=== PATIENT | male | born 1940 | race Caucasian/White ===

== ENCOUNTER 2024-10-28 07:45 | Outpatient (CLI) | payer MEDICARE, SELFPAY ==
--- NOTE | ~2024-10-28 | PE_ITS ---
EXAMINATION: PET_PETPSMAST_PT DATE: 10/28/2024 10:14 INDICATION: Prostate cancer TECHNIQUE: 4.283 mCi of Illucix Ga-[id number]) was administered i.v. Low dose computed jayda graphy (CT) images were acquired from the base of the brain to the base of the brain to the proximal thighs for attenuation correction and anatomic localization. Positron emission tomography (PET) image s were acquired in the same distribution beginning 95 minutes after injection. Images including fused PET/CT images were reconstructed in axial, coronal, and sagittal planes. Automated exposure control technique was employed. The dose-length product was 1317.13mGy-cm. COMPARISON: None FINDINGS: Head/neck: Typical pattern of symmetric physiologic increased activity in the lacrimal, parotid and submandibula r glands as well as along the mucosa of the nasal and oral cavities, pharynx and hypopharynx. There a re several normal-sized but PSMA avid jugular chain lymph nodes at the level of the thyroid consisten t with metastatic disease, the 3 most intense with maximal SUV values of 11.4-14.5. No pathologically enlarged cervical lymphadenopathy in the visualized head or neck. 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 There are some patchy groundglass opacities without tears may activity in the right upper lobe which could represen t atelectasis or pneumonia. No pleural effusion. Cardiomegaly with biatrial enlargement. Atherosclero tic coronary artery calcifications. Aortic valve repair. Dense mitral annular calcific lesion. Single lead cardiac pacemaker with lead tip near the apex of the right ventricle. No pericardial effusion. There are several additional normal-sized but PSMA avid mediastinal lymph nodes with maximal SUV valu es of 4.3-14.5 consistent with additional metastatic disease. Minimal uptake in a couple normal-sized bilateral axillary lymph nodes with maximal SUV values of 2.2 on the right and 2.6 on the left equiv ocal for metastatic disease. Abdomen/pelvis/proximal thighs: Physiologic renal accumulation and excretion of activity in the kidneys, bladder and along portions o f ureters. 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 There is heterogeneous increased uptake in the enlarged prostate which measures 5.0 x 3.9 cm with maximal SUV of 33.3 consistent with primary br east cancer. There are multiple mildly enlarged and PSA may avid lymph nodes beginning and the pelvis along the bilateral external iliac chains and extending cephalad along the bilateral common iliac ch ains to the left and right perinephric regions at the below the level of the renal arteries. For ashwin rodriguez a 2.1 x 1.1 cm infrarenal aortocaval lymph node demonstrates maximal SUV of 27.3 and a 2.0 x 1. 3 cm right external iliac chain lymph node demonstrates maximal SUV of 22.3. As at the bilateral axil la. There are couple bilateral normal-sized inguinal lymph nodes with mild uptake with maximal SUV of 3.3 on the right and 3.6 on the left similarly equivocal for metastatic disease. Normal degree and slightly heterogenous pattern of increased uptake throughout the liver and spleen w ithout radiologic correlate or dominant PSMA avid lesion. The gallbladder, pancreas and bilateral adr enal glands are normal. Moderate uptake scattered throughout the bowels with typical duodenal and pro ximal jejunal predominance and without radiologic correlate, also likely physiologic. Musculoskeletal: There is an old healed proximal right femoral periprosthetic fracture about the femoral component of the arthroplasty which is distally fixed with surrounding cerclage wires. 2.1 x 1.3 cm sclerotic supr a-acetabular bone lesion with increased uptake with maximal SUV of 17.5 consistent with osseous metas tatic disease. Additional small focus of bone uptake with maximal SUV of 11.8 at the posterior head o f the left ninth rib with minimal associated sclerosis consistent with additional osseous metastatic disease. Also suspicious for metastatic disease is a small focus of increased uptake with maximal SUV of 4.1 but without radiologic correlate at the anterior left eighth rib. Severe cervical, lumbar and lower thoracic spondylosis. IMPRESSION: 1. Heterogeneous increased uptake in the enlarged prostate consistent with primary prostate cancer. 2. multiple PSMA avid lymph nodes at the lower neck, mediastinum and retroperitoneal abdomen and pelv is along with a a few PSMA avid sclerotic bone lesions consistent with metastatic disease. Reviewed, dictated and finalized at location [facility] IMPRESSION: 1. Heterogeneous increased uptake in the enlarged prostate consistent with prim remy prostate cancer. 2. multiple PSMA avid lymph nodes at the lower neck, mediastinum and retroperit ibrahim abdomen and pelvis along with a a few PSMA avid sclerotic bone lesions co nsistent with metastatic disease.
== END 2024-10-28 07:46 | disposition home or self-care (01) ==
PROVIDERS: PCP Internal Medicine; Visit Provider Urology
DX: C61 Malignant neoplasm of prostate (principal); N32.81 Overactive bladder
CPT/HCPCS: 78815; A9596